=== PATIENT | female | born 1990 | race Caucasian/White ===

== ENCOUNTER 2018-02-03 13:31 | Emergency (ER) | payer BC, OTHER ==
--- NOTE | 2018-02-03 14:01 | UC ---
General HPI - HPI Summary HPI Summary: 01/23/18, pt had teeth whitening and a single filling by her dentist. 01/25/18, she noted mouth sores above the filling and in the cheek on the same side. she also noted ear pain and swollen glands. her dentist tx her with amoxicillin. on 01/27/18, she c/o ongoing worsening ulcerations, tongue swelling and feeling sob. she went to [facility] in [place] because she works near by there. they tx with magic mouth wash and peridex plus stopped her amoxicillin. 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 they also did a cbc and cmp which were normal. pt here today because of more mouth sores, states can't eat thus lost 5# 's due to mouth pain. denies fever, sob and any other rash/complaints. denies any GI s/s's - History of Current Complaint Stated Complaint: RIGHT EAR PAIN Time Seen by Provider: 02/03/18 13:54 Hx Obtained From: Patient Onset/Duration: Gradual Onset Timing: Constant Alleviating: nothing - Allergy/Home Medications Allergies/Adverse Reactions: Allergies Allergy/AdvReac Type Severity Reaction Status Date / Time amoxicillin Allergy Anaphylatic Verified 02/03/18 13:46 Shock sulfamethoxazole Allergy Anaphylatic Verified 02/03/18 13:46 [From Bactrim] Shock trimethoprim [From Bactrim] Allergy Anaphylatic Verified 02/03/18 13:46 Shock Home Medications: Home Medications Acetaminophen [Acetaminophen Extra Strength] 1,000 mg PO Q6H PRN 02/03/18 [ History Confirmed 02/03/18] PMH/Surg Hx/FS Hx/Imm Hx Previously Healthy: Yes - Surgical History Surgical History: None - Family History Known Family History: Positive: None - Social History Occupation: Employed Full-time Lives: With Family Substance Use Type: None Smoking Status (MU): Never Smoked Tobacco - Immunization History Vaccination Up to Date: Yes Review of Systems Constitutional: Negative Skin: Negative Eyes: Negative ENT: Ear Ache Respiratory: Negative Cardiovascular: Negative Gastrointestinal: Negative Genitourinary: Negative Motor: Negative Neurovascular: Negative Musculoskeletal: Negative Neurological: Negative Psychological: Negative Is Patient Immunocompromised?: No All Other Systems Reviewed And Are Negative: Yes Physical Exam Triage Information Reviewed: Yes Appearance: Well-Appearing Vital Signs Reviewed: Yes Eyes: Positive: Conjunctiva Clear ENT: Positive: TMs normal, Uvula midline, Other - multiple ulcerations to tongue , gums, inner lips, cheeks and posterior pharynx. Negative: Nasal congestion, Nasal drainage, Tonsillar swelling, Tonsillar exudate, Trismus, Muffled voice, Hoarse voice Neck: Positive: Supple, Tenderness @ - peritonsilar nodes, Enlarged Nodes @ - peritonsilar nodes Respiratory: Positive: Lungs clear, Normal breath sounds Cardiovascular: Positive: RRR, No Murmur Abdomen Description: Positive: Nontender, No Organomegaly, Soft Bowel Sounds: Positive: Present Musculoskeletal: Positive: ROM Intact Neurological: Positive: Alert Psychological: Positive: Age Appropriate Behavior Skin Exam: Normal Diagnostics - Laboratory Diagnostic Studies Completed/Ordered: viral mouth culture=pending Course/Dx - Course Course Of Treatment: non toxic, no concern for giovani sarah beth syndrom or allergic reaction. no GI s/s's to suggest chron's. will d/c all prior tx since not improving. since still developing new ulcers, will tx with antiviral, obtain a viral culture and tx with carafate. - Differential Dx - Multi-Symptom Provider Diagnoses: Gingivostomatitis Discharge - Sign-Out/Discharge Documenting (check all that apply): Discharge/Admit/Transfer - Discharge Plan Condition: Stable Disposition: HOME Prescriptions: Famciclovir(NF) [Famvir(NF)] 500 mg PO TID #21 tab Sucralfate SUSP (NF) [Carafate SUSP (NF)] 10 ml PO Q6HR 7 Days #280 ml Patient Education Materials: Gingivostomatitis (ED) Referrals: John Castillo, PCB DESIGNER [Primary Care Provider] - 5 Days Additional Instructions: STOP ALL PRIOR TREATMENTS - Billing Disposition and Condition Condition: STABLE Disposition: HOME
== END 2018-02-03 15:11 | disposition home or self-care (01) ==
LOC: UCCORT 13:31
DX: K05.10 Chronic gingivitis, plaque induced (principal); Z88.3 Allergy status to other anti-infective agents
CPT/HCPCS: 87529; 99202; G0463